=== PATIENT | male | born 2005 | race Hispanic/Latino ===

== ENCOUNTER 2024-03-28 17:57 | Emergency (ER) | payer MEDICAID, OTHER ==
[2024-03-28] MEDS ORDERED: Ondansetron PF 4 MG/2 ML Vial ONE (18:12)
[2024-03-28] MEDS ORDERED: fentaNYL 50 mcg/mL 1 mL Vial ONE (18:12)
== END 2024-03-29 02:53 | disposition home or self-care (01) ==
LOC: ERS 17:57
DX: S16.1XXA Strain of muscle, fascia and tendon at neck level, initial encounter (principal); S39.012A Strain of muscle, fascia and tendon of lower back, initial encounter; F17.290 Nicotine dependence, other tobacco product, uncomplicated; V89.2XXA Person injured in unspecified motor-vehicle accident, traffic, initial encounter
CPT/HCPCS: 70450; 71045; 72100; 72125; 96374; 96375; J2405; J3010